=== PATIENT | female | born 1990 | race Caucasian/White ===

== ENCOUNTER 2023-11-23 15:16 | Observation (INO) | payer OTHER, MEDICAID, SELFPAY ==
[2023-11-23 15:19] VITALS: BP 124/90; PULSE 122; RESP 16; TEMP 35.6; O2SAT 100; BMI 27.8
[2023-11-23 15:21] VITALS: BP 124/90; PULSE 122; RESP 16; TEMP 35.6; O2SAT 100
--- NOTE | 2023-11-23 15:39 | EDS_ITS ---
HPI History of Present Illness Chief Complaint: Substance Abuse Informant: patient Onset/Context/Timing Onset: Today Timing: Continuous Worsened by: Nothing Relieved by: Nothing Associated Symptoms Associated Symptoms: Positive for tremor; Negative for vomiting*, diarrhea*, fever*, rash*, seizure, change in mental status, trauma, suicidal ideation or homicidal ideation Narrative Narrative: Patient presents requesting detox from heroin. Patient states she uses 2 to 3.5 g/day. Patient states she injects it. Patient states her last use was approximate 2 hours prior to arrival. Patient denies any prior detox. Patient admits to some tremors and palpitations. Patient denies any vomiting or diarrhea. Patient denies any fevers or chills. Patient denies any suicidal or homicidal ideations. [facility] Medical History (Updated 11/23/23 @ 18:[address] Jc Alba, DO) Former cigarette smoker Heavy alcohol use Heroin abuse HIV (human immunodeficiency virus infection) IV drug user Nicotine dependence due to vaping non-tobacco product Pelvic adhesive disease Home Medications bictegravir 50 mg-emtricitabine 200 mg-tenofovir alafenam 25 mg tablet (Bikta rvy) 1 tab PO DAILY 11/23/23 [History Last Taken Unknown] Allergy/AdvReac Type Severity Reaction Status Date / Time azithromycin Allergy Intermediate Rash Verified 11/23/23 15:19 [From Zithromax Z-Venancio] Family History (Updated 11/23/23 @ 17:[address] Mirlande Lynch MD) Mother Anxiety and depression Father Alcohol abuse Surgical History (Updated 11/23/23 @ 17:[address] Mirlande Lynch MD) H/O ovarian cystectomy H/O tubal ligation Hx of section Social History (Updated 11/23/23 @ 17:[address] Mirlande Lynch MD) household members: none and other details: Her mother w/ custody of her 2 children, 3rd/youngest was adopted at . Smoking Status: Current every day smoker tobacco type: cigarettes Electronic Cigarette Use: with nicotine how long ago did patient quit smoking: Former cigarette tobacco use, 1/2-1 ppd, transitioned to vap 3 yrs ago. alcohol intake: current alcohol intake frequency: a few times a week details: Reports drinking occasionally heavy on the F/S. substance use type: heroin and IV drugs ROS ROS ED Constitutional Constitutional ED: Reports chills and subjective; Denies fever(s) Eyes Eyes: Denies blurry vision or change in vision ENT ENT ED: Denies rhinorrhea or sore throat Cardiovascular Cardiovascular: Reports palpitations; Denies chest pain Respiratory/Chest Respiratory/Chest: Denies cough or dyspnea Gastrointestinal Gastrointestinal: Denies nausea or vomiting Genitourinary Genitourinary ED: Reports hematuria; Denies dysuria Musculoskeletal Musculoskeletal: Reports back pain and neck pain Integumentary Denies abscess or rash Neurologic Neurologic: Denies headache(s) or weakness Allergic/Immunologic Allergic/Immunologic ED: Denies mouth swelling or urticaria EXAM Physical Exam Const Vital Signs: 11/23/23 15:19 11/23/23 15:21 Temperature 96.0 F L 96.0 F L Temperature Source Temporal Temporal Pulse Rate 122 H 122 H Respiratory Rate 16 16 Blood Pressure 124/90 H 124/90 H Blood Pressure Mean 101 101 Pulse Ox 100 100 Oxygen Delivery Method Room Air Room Air Positive well nourished and well developed General Appearance ED: well developed and NAD HEENT Reports moist mucous membranes atraumatic Neck supple and no JVD Resp normal respiratory effort and clear to auscultation bilaterally Cardio regular rate and regular rhythm GI soft to palpation, non-tender and non-distended Neuro oriented x3, CN's II-XII intact bilaterally and no sensory deficits noted [place] Coma Scale: document GCS findings Spontaneous Obeys Commands Oriented 15 Sensorium / Orientation: alert Motor Exam: strength 5/5 throughout Psych mental status grossly normal MDM MDM MDM Narrative Medical decision making narrative: Medical screening labs will be obtained. CBC will be obtained to assess for leukocytosis and anemia. Comprehensive metabolic profile will be obtained to assess for hepatic function, renal function, and electrolyte abnormality. Serum hCG will be obtained to assess for . Serum alcohol level will be obtained to assess for alcohol intoxication. Urine drug screen will be obtained to assess for substance abuse. Lab Data Attestation: I reviewed the patient's lab results. Lab results narrative: CBC was reviewed and was within normal limits. Comprehensive metabolic profile was reviewed and was essentially within normal limits. Serum hCG was reviewed and was negative. Serum alcohol level was reviewed and was negative. Treatment and Re-Evaluation Narrative: Case was discussed with the hospitalist. She will admit the patient to her service. Patient understood and was agreeable with the plan. All questions were answered. Discharge Plan Triage Chief Complaint: Substance Abuse ED Provider: Jc Alba Dx/Rx/DC Orders Clinical Impression: Opiate withdrawal, HIV (human immunodeficiency virus infection) Primary Care Provider: Care Physician,No Primary Disposition Disposition: Acute Care Hospital [facility]
--- NOTE | 2023-11-23 16:33 | PCM.HP.STD ---
HPI - General General Date of Admission: 11/23/23 Date of Service: 11/23/23 Chief Complaint: Opiate detox request, Acute Opiate withdrawal. HPI Narrative The patient is a 33 y/o F w/ PMHx: HIV following with ID (should have annual visit this month), Former cigarette use->Vaping tobacco Heavy, Heavy Weekend Intermittent EtOH use, Pelvic adhesive disease, IVDA primarily with heroine using 3.5 gm daily who presents to the [facility] ED on 11/23/23 w/ noted acute opiate withdrawal onset starting on presentation following last dose 2-3 hours prior with mild cramping, generalized body aches, fatigue, restless leg. Patient interested in attaining clean status. She does report that she does not have custody of any of her children with the to Elder and her mother's custody and the youngest was adopted at . Patient does report most recent place of injection is into the left neck. Workup in the ED included T96, heart rate 122, BP 124/90, respiratory rate 16, 100% on room air, CBC with WBC 6.3, and 114, platelet 284 without marked shift, CMP with potassium 3.4, chloride 110, AST/LT 89/151, alk phos 158. [facility] Medical History (Updated 11/23/23 @ 17:[address] Mirlande Lynch MD) Former cigarette smoker Heavy alcohol use Heroin abuse HIV (human immunodeficiency virus infection) IV drug user Nicotine dependence due to vaping non-tobacco product Pelvic adhesive disease Home Medications bictegravir 50 mg-emtricitabine 200 mg-tenofovir alafenam 25 mg tablet (Biktarvy) 1 tab PO DAILY 11/23/23 [History Last Taken Unknown] Allergy/AdvReac Type Severity Reaction Status Date / Time azithromycin Allergy Intermediate Rash Verified 11/23/23 15:19 [From Zithromax Z-Venancio] Family History (Updated 11/23/23 @ 17:[address] Mirlande Lynch MD) Mother Anxiety and depression Father Alcohol abuse Surgical History (Updated 11/23/23 @ 17:[address] Mirlande Lynch MD) H/O ovarian cystectomy H/O tubal ligation Hx of section Social History (Updated 11/23/23 @ 17:[address] Mirlande Lynch MD) household members: none and other details: Her mother w/ custody of her 2 children, 3rd/youngest was adopted at . Smoking Status: Current every day smoker tobacco type: cigarettes Electronic Cigarette Use: with nicotine how long ago did patient quit smoking: Former cigarette tobacco use, 1/2-1 ppd, transitioned to vap 3 yrs ago. alcohol intake: current alcohol intake frequency: a few times a week details: Reports drinking occasionally heavy on the F/S. substance use type: heroin and IV drugs ROS ROS Narrative Admission Review of Systems: CONSTITUTIONAL: No weight loss, fever, chills, + weakness or fatigue. HEENT: Eyes: No visual loss, blurred vision, double vision or yellow sclerae. Ears, Nose, Throat: No hearing loss, sneezing, congestion, runny nose or sore throat. SKIN: No rash or itching, lesions, wounds except for + very staged track bay with most recent injection in the left neck with ecchymoses associated. CARDIOVASCULAR: + Sensation racing heart. No chest pain, chest pressure or chest discomfort, edema, orthopnea, syncopal events. RESPIRATORY: No shortness of breath, cough or sputum, wheezing, hemoptysis. GASTROINTESTINAL: + Mild anorexia, abdominal cramping. No nausea, vomiting, diarrhea, melena, BRBPR. GENITOURINARY: No dysuria, frequency, urgency or retention. NEUROLOGICAL: No headache, dizziness, syncope, paralysis, ataxia, numbness or tingling in the extremities, focal weakness, change in bowel or bladder control, seizure. MUSCULOSKELETAL: + muscle, back pain, joint pain or stiffness. HEMATOLOGIC: No anemia, bleeding or bruising. LYMPHATICS: No enlarged nodes. No history of splenectomy. PSYCHIATRIC: + Suspect potentially underlying anxiety/depression but patient denies. ENDOCRINOLOGIC: + Reports of sweating, cold or heat intolerance. No polyuria or polydipsia. ALLERGIES: No history of asthma, hives, eczema or rhinitis. Vital Signs Vital Signs Vital Signs: 11/23/23 15:19 11/23/23 15:21 Temperature 96.0 F L 96.0 F L Temperature Source Temporal Temporal Pulse Rate 122 H 122 H Respiratory Rate 16 16 Blood Pressure 124/90 H 124/90 H Blood Pressure Mean 101 101 Pulse Ox 100 100 Oxygen Delivery Method Room Air Room Air Weight Weight: 142 lb 10.225 oz Body Mass Index (BMI) 27.8 Physical Exam Narrative Physical Examination: General: Awake, alert, oriented x 3 and cooperative, seated upright in the ED bed, fatigued, yawning mildly restless. Skin: Normal color, normal turgor, no icterus, no cyanosis except for very staged track bay, most recent use area left neck with no fluctuant concerning regions with ecchymotic change HEENT: AT/NC, EOMI, PERRLA, dry MM, no carotid bruits or JVD noted, see skin. Lungs: Mildly diminished, greater bases, appropriate effort no rales, ronchi or wheezing. Heart: Tachycardic with regular rhythm; no gallop, rub audible. Abdomen: Soft, mild generalized discomfort but no rebound or guarding, no evidence of any distention, hyperactive BS, no appreciated HSM. Extremities: No cyanosis, clubbing, or edema. Neurological: Patient awake, alert, oriented as noted, cognitive function intact; pupils equally reactive to light and accommodation, cranial nerves grossly normal, moving all 4 extremities, no focal deficits, strength mildly to moderately globally Devi secondary to acute withdrawal. Psychiatric: Affect appears restless, fatigued, do suspect patient is mildly tearful with discussions regarding her children but denies any anxiety or depression. Results Lab / Micro Data 11/23/23 16:47 11/23/23 16:47 Assessment & Plan Assessment/Plan (1) Opiate withdrawal: PLAN: Plan The patient is a 33 y/o F w/ PMHx: HIV following with ID (should have annual visit this month), Former cigarette use->Vaping tobacco Heavy, Heavy Weekend Intermittent EtOH use, Pelvic adhesive disease, IVDA primarily with heroine using 3.5 gm daily who presents to the [facility] ED on 11/23/23 w/ noted acute opiate withdrawal. #1. Acute Opiate Withdrawal: Will admit to MS, routine labs including CBC, CMP, urine for drug screen obtained in the ED and pending upon evaluatioin, will initiate and continue on protocol with tapering course of Subutex, as needed tylenol, ibuprofen, bowel regimen, gabapentin, Bentyl, Vistaril, methocarbamol, clonidine, PRN nightly trazodone for insomnia, IV fluids, IV antiemetics. Once patient clinically improved and completion of taper nearing will plan consultation with case management for transition to next level of rehabilitation care. #2. Polysubstance Abuse, IVDA with HIV status: Discussed with patient and given ongoing IV drug abuse will obtain hepatitis panel as well as syphilis given elevated instances in the community. Will continue patient home HIV antiviral regimen strongly encourage continued routine follow-up with her infectious disease physician. #3. Heavier weekend alcohol use: Patient not the best historian regarding amount but from discussions do suspect possibly binge alcoholism, strongly encouraged given her propensity for abuse of substances complete sobriety. Supplementing potassium as noted, magnesium and phosphorus pending. To be cautious we will overlap with CIWA and maintain on multivitamin, thiamine and folic acid. #4. Transaminitis, unclear chronicity: Admission LFTs with AST/ALT 89/151, alk phos 158 without comparison, will obtain liver ultrasound be cautious as patient is high risk for lack of follow-up and repeat CMP in AM. Hepatitis panel as noted has been requested given ongoing IV drug abuse for concurrent coinfection. #5. Hypokalemia: Admission K+ 3.4, magnesium level requested, supplementation given, repeat level in AM. #6. Tobacco Abuse: Encouraged cessation, inpatient consultation per RT, NR if desired. #7. DVT prophylaxis: Low risk for type admission, encourage ambulation. Charges/Coding Visit Charges Inpatient E&M: 05923 Init Hosp L3
--- OUTSIDE RECORDS SUMMARY | 2023-11-23 16:44 | XMS RPT_ITS | CCD ---
Author Name Unknown Address [address] [place] [address] Organization [facility] Care Team Providers Care Customer Contact Specialist Name Role Phone Joanna Benitez Unavailable Unavailable Alvin Mckeon Unavailable Unavailable Alvin Mckeon Unavailable Unavailable TOWARD, SILVA E. Unavailable Unavailable TOWARD, SILVA E. Unavailable Unavailable BETTY ABAD Unavailable Unavailable TOWARD, SILVA E. Unavailable Unavailable RAINE العراقي Unavailable Unavailable TOWARD, SILVA E. Unavailable Unavailable SHAR KEENE Unavailable Unavailable RIVKA YUDYHELEN LARSON Primary Care Unavailable OMAR TINAJERO Admitting Unavailable OMAR TINAJERO Attending Unavailable Rivka Yudy Abbey Primary Care Provider [phone] No, Physician Primary Care Provider UnavailDr. Miguel Bailey II Attending Unav MARY Lomax Attending Unavailab le NO, PHYSICIAN Primary Care Unavailable Allergies Allergy Classification Reported Allergen(s) Allergy Type Date of Onset Reaction(s) Facility (3 sources) azithromycin; Translations: [azithromycin] Drug Allergy 4 AOF [facility] Repository (1 source) No Known Allergies; Translations: [No Known Allergies] Propensity to adverse reactions to drug (disorder) [facility] Repository (2 sources) ERYTHROMYCIN BASE; Translations: [Unknown] Propensity to adverse reactions to drug (disorder) 6 Rash [facility] Repository Medications Current Medications Medication Drug Class(es) Dates Sig (Normalized) Sig (Original) moxifloxacin 5 mg/ml ophthalmic solution (2 sources) Quinolone Antimicrobial Start: 02-11-2019 End: 02-18-2019 take 1 drop(s) into the eye(s) three times daily moxifloxacin (VIGAMOX) 0.5 % ophthalmic solution Administer 1 (one) drop to both eyes 3 (three) times a day HOME STACIE for 7 days . 5 mL 0 02/11/2019 02/18/2019 Active Completed/Discontinued Medications Medication Drug Class(es) Dates Sig (Normalized) Sig (Original) tetracaine hydrochloride 5 mg/ml ophthalmic solution (1 source) Natalie Local Anesthetic Start: 02-11-2019 End: 02-11-2019 tetracaine (ALTACAINE) 0.5 % ophthalmic drops 2 drop traZODone hydrochloride 50 mg oral tablet (1 source) Serotonin Reuptake Inhibitor Start: 03-22-2018 End: 02-10-2019 take 1 tablet by mouth once daily traZODone (DESYREL) 50 MG tablet Indications: Insomnia due to stress Take 1 (one) tablet (50 mg total) by mouth nightly. 30 tablet 3 03/22/2018 02/10/2019 Discontinued venlafaxine 75 mg oral tablet (1 source) Serotonin and Norepinephrine Reuptake Inhibitor Start: 03-22-2018 End: 02-10-2019 take 1 tablet by mouth twice daily venlafaxine (EFFEXOR) 75 MG tablet Indications: PTSD (Post-Traumatic Stress Disorder) Take 1 (one) tablet (75 mg total) by mouth 2 (two) times a day. 60 tablet 3 03/22/2018 02/10/2019 Discontinued Problems Active Problems Problem Classification Problem Date Documented Date Episodic/Chronic Anxiety disorders (1 source) Posttraumatic stress disorder; Translations: [PTSD (Post-Traumatic Stress Disorder)] Onset: 03-22-2018 03-22-2018 Chronic Inflammation; infection of eye (except that caused by tuberculosis or sexually transmitteddisease) (3 sources) Bacterial keratitis; Translations: [Unspecified conjunctivitis] Onset: 02-18-2023 Episodic Substance-related disorders (5 sources) Opioid dependence, uncomplicated; Translations: [Opioid dependence, uncomplicated] Onset: 05-21-2017 Chronic Past or Other Problems Problem Classification Problem Date Documented Date Episodic/Chronic Fracture of lower limb (1 source) Fracture of shaft of fibula; Translations: [Fracture of fibula, shaft] Onset: 12-27-2015 12-27-2015 Episodic Immunizations and screening for infectious disease (2 sources) Contact with and (suspected) exposure to infections with a predominantly sexual mode of transmission; Translations: [Contact with and (suspected) exposure to infections with a predominantly sexual mode of transmission] Onset: 07-20-2017 Episodic Other aftercare (2 sources) long-term (current) use of opiate analgesic; Translations: [long-term (current) use of opiate analgesic] Onset: 05-21-2017 Episodic Residual codes; unclassified (1 source) Insomnia; Translations: [Insomnia due to stress] Onset: 03-07-2018 03-07-2018 Episodic Results Test Name Value Interpretation Reference Range Facil ity Vital Signs Date Time Vital Sign Value Performing Clinician Faci lity 02-11-2019 00:01-0400 BMI (Body Mass Index) 27.04 kg/m2 [facility] 02-11-2019 00:01-0400 Body Temperature 97.7 [degF] [facility] 02-11-2019 00:01-0400 Body weight 61.24 kg [facility] 02-11-2019 00:01-0400 BP Diastolic 90 mm[Hg] [facility] 02-11-2019 00:01-0400 BP Systolic 123 mm[Hg] [facility] 02-11-2019 00:01-0400 Height 150.5 cm [facility] 02-11-2019 00:01-0400 Pulse (Heart Rate) 84 /min [facility] 02-11-2019 00:01-0400 Pulse Oximetry 97 % [facility] 02-11-2019 00:01-0400 Respiratory Rate 16 /min [facility] Encounters Encounter Date Encounter Type Care Provider Facility Start: 02-18-2023 End: 02-18-2023 Emergency department patient visit MARY MACHUCA CARO [facility] Start: 01-29-[address] Miguel Love II Facility:[id number] Start: 02-11-2019 End: 02-11-2019 Emergency department patient visit YUDY CORDOVA [facility] Start: 02-10-2019 End: 02-11-2019 Emergency department patient visit Omar Tinajero Work Phone: [facility] Emergency Department Plan of Treatment Date Care Activity Detail Author Start: 07-13-2018 Influenza vaccination given SE QUENTIAL INFLUENZA VACCINE (#1) [facility] Start: 1989 Screening for malign ant neoplasm of cervix PAP SMEAR [facility] Start: 1989 Tetanus vaccination TETANUS EVERY 10 YR [facility] Payers Date Payer Category Payer Self-pay 2017 Medicaid [id number] 2017 Medicaid [id number] 2013 Medicaid [id number] 1989 Unknown [id number] 1989 Unknown [id number] 1989 Unknown [id number] 1989 Unknown [id number] Medicaid Unknown [id number] Social History Date Type Detail Facility Start: 02-11-2019 Tobacco smoking status NHIS Current every day smoker [facility] Sex Assigned At Not on file [facility] Medical Equipment Procedure Code Equipment Code Equipment Origin al Text Equipment Identifier Dates fluorescein ophthalmic strip 1 strip [id number] Start: 02-11-2019 End: 02-11-2019 Summary Purpose Family History No Family History Records FoundNo Family History Records FoundNo Family History Records FoundNo Family History Records FoundNo Family History Records FoundNo Family History Records FoundNo Family History Records Found Advance Directives No Advanced Directives Records FoundNo Advanced Directives Records FoundNo Advanced Directives Records FoundNo Advanced Directives Records FoundNo Advanced Directives Records Found Patient has advance care planning documents on file. For more information, please contact: [address] [address] No Advanced Directives Records FoundNo Advanced Directives Records Found Discharge Instructions * Attachments The following attachments cannot be sent through Care Everywhere. * Blood Pressure: Elevated (German) in this encounter Assessments Diagnosis Bacterial keratitis- Primary Other forms of keratitis Additional Source Comments INFORMATION SOURCE (unrecogn ized section and content) DATE CREATED AUTHOR AUTHOR'S ORGANIZ ATION 05/08/2018 [facility] DATE CREATED AUTHOR AUTHOR'S ORGANIZ ATION 05/08/2018 [facility] DATE CREATED AUTHOR AUTHOR'S ORGANIZ ATION 10/21/2018 [facility] DATE CREATED AUTHOR AUTHOR'S ORGANIZ ATION 12/05/2020 [facility] DATE CREATED AUTHOR AUTHOR'S ORGANIZ ATION 02/04/2023 [facility] DATE CREATED AUTHOR AUTHOR'S ORGANIZ ATION 02/25/2023 [facility] Reason for Visit (unrecogniz ed section and content) Roxanne Fine RN - 02/11/2019 12:20 AM EDT ED Notes (unrecognized secti on and content) Physician at bedside. in this encounter FOR RECORDS PERTAINING TO PATIENTS WHO ARE OR HAVE BEEN ENROLLED IN A CHEMICAL DEPENDENCY/SUBSTANCEABUSE PROGRAM, SOME INFORMATION MAY BE OMITTED. This clinical summary was aggregated from multiple sources. Caution should be exercised in using it in the provision of clinical care. This summary normalizes information from multiple sources, and as a consequence, information in this document may materially change the coding, format and clinical context of patient data. In addition, data may be omitted in some cases. CLINICAL DECISIONS SHOULD BE BASED ON THE PRIMARY CLINICAL RECORDS. [employer] provides no warranty or guarantee of the accuracy or completeness of information in this document.
[2023-11-23 16:53] LABS: Absolute Lymphocyte Count 1.03 X10^3/uL (0.83-4.51); Absolute Neutrophil Count 4.7 X10^3/uL (2.0-7.7); Basophil# 0.03 X10^3/uL; Basophil% 0.5 % (0-1); Eosinophil# 0.01 X10^3/uL; Eosinophils% 0.2 % (0-5); Hematocrit 42.7 % (37-47); Lymphocyte # 1.03 X10^3/ul (0.83-4.51); Lymphocyte % 16.5 % (19-41); Mean Corp Hgb Conc 32.8 g/dL (32-36); Mean Corpuscular Hgb 26.7 pg (27.0-32.0); Mean Corpuscular Volume 81.3 fL (81-99); Mean Platelet Vol. 10.3 fl (6.2-12.0); Monocyte# 0.44 X10^3/uL; NRBC Flagged by Analyzer 0 % (0-5); Neutrophil # 4.72 X10^3/uL (2.7-7.7); Neutrophil % 75.5 % (47-70); Platelet Count 284 K/mm3 (150-450); RBC Distribution Width CV 12.4 % (11.6-14.6); RBC Distribution Width SD 36.2 fl (35.1-43.9); Red Blood Count 5.25 M/mm3 (4.2-5.4); White Blood Count 6.3 K/mm3 (4.4-11.0)
[2023-11-23 17:00] VITALS: BP 117/86; PULSE 85; RESP 16; O2SAT 99
[2023-11-23 17:11] LABS: ALB/GLOB Ratio 0.8 RATIO (0.9-2.4); AST(SGOT) 89 U/L (15-37); Alanine Aminotransfer ALT/SGPT 151 U/L (13-56); Albumin, Serum 3.7 g/dL (3.2-5.0); Alkaline Phosphatase 158 U/L (45-117); Anion Gap 9 (5-15); BUN 15 mg/dL (7-18); BUN/Creat Ratio 18.6 RATIO (10-20); Calcium,Total 9.5 mg/dL (8.5-10.1); Chloride 110 mmol/L (98-107); Creatinine, Serum 0.81 mg/dL (0.55-1.02); EST Glomerular Filtration Rate 86 mL/min (>60); Est Glom Filt Rate - Afr Amer 104 mL/min (>60); Estimated Creatinine Clearance 82.16 ml/min; Globulin 4.5 g/dL (2.2-4.2); Glucose 104 mg/dL (74-106); Potassium 3.4 mmol/L (3.5-5.1); Protein, Total 8.2 g/dL (6.4-8.2); Sodium Level 140 mmol/L (136-145)
--- NOTE | 2023-11-23 17:12 | CM.ED ---
Social Work SW called treatment navigator to notify them of new RAMP admission. No answer, left voicemail. Candelaria Mcwilliams PILLOWCASE FOLDER, ELECTRONICS WARFARE TECHNICIAN
[2023-11-23 18:03] LABS: Alcohol, Blood (Medical)-Serum < 3.0 mg/dL; Internal QC Validated? YES +Cl - CLEAR BKGD; Pregnancy, Serum, hCG Quali. NEGATIVE Negative
[2023-11-23 18:04] LABS: Magnesium 2.5 mg/dL (1.6-2.6); Phosphorus 3.6 mg/dL (2.5-4.9)
[2023-11-23 18:15] VITALS: BP 123/83; PULSE 77; RESP 14; O2SAT 99
[2023-11-23 18:24] LABS: Syphilis Antibodies Non-reactive
[2023-11-23 19:22] VITALS: BMI 27.8
[2023-11-23] MEDS: Potassium Chloride Oral Tablet 20 MEQ 40 MEQ PO (19:29)
[2023-11-23 19:32] VITALS: BP 130/76; PULSE 95; RESP 16; TEMP 36.8; O2SAT 98
[2023-11-23] MEDS: Acetaminophen 325 MG Tablet 650 MG PO (20:36)
[2023-11-23] MEDS: Ondansetron 8 MG Tablet PO (20:36)
[2023-11-23] MEDS: Dicyclomine 10 MG Capsule 20 MG PO (20:36)
[2023-11-23] MEDS: traZODone 100 MG Tablet PO (20:36)
[2023-11-23 20:49] LABS: Hepatitis B Surface Antibody Reactive; Hepatitis B Surface Antigen Non-Reactive (Nonreactive); Hepatitis C Antibody Preliminary Reactive (Nonreactive)
[2023-11-23] MEDS: Buprenorphine HCl 2 MG TAB.SUBL 4 MG SL (20:52)
[2023-11-23 22:45] VITALS: O2SAT 98
[2023-11-23] MEDS: Methocarbamol 750 MG Tablet PO (23:48)
[2023-11-23] MEDS: cloNIDine HCl 0.1 MG Tablet 0.100000000000000006 MG PO (23:48)
[2023-11-24 02:37] VITALS: BP 116/80; PULSE 92; RESP 16; TEMP 36.8; O2SAT 95
[2023-11-24] MEDS: Buprenorphine HCl 2 MG TAB.SUBL 4 MG SL (05:05)
--- NOTE | 2023-11-24 06:30 | US_ITS ---
STUDY: ABDOMINAL ULTRASOUND - RIGHT UPPER QUADRANT REASON FOR VISIT: Female, 33 years old Elevated LFTs TECHNIQUE: Ultrasound evaluation of the right upper quadrant was performed with real-time and static hernandez-scale imaging. TECHNICAL QUALITY: Adequate. COMPARISON: None. FINDINGS: Liver: The liver measures 15.6 cm. Increased echogenicity of the liver parenchyma due to fatty infiltration. The bile ducts are within normal limits. There is hepatic color flow. The direction of portal flow is hepatopetal. There is no demonstrated mass lesion. Gallbladder: Normal distended gallbladder. The gallbladder wall measures 2.7 mm. There is a negative sonographic Mercer''s sign. There is no pericholecystic fluid. There are no gallstones. Common Bile Duct (C.B.D.): The common bile duct measures 4.1 mm. Pancreas: Normal size of the visualized portions of pancreas. The pancreatic tail is obscured by overlying bowel gas. There is normal echogenicity of the visualized portions of the pancreas. No suspicious pancreatic mass or cyst in the visualized portions of the pancreas. Right Kidney: Normal size of the right kidney. The right kidney measures 9.6 x 5.3 x 5.4 cm. Normal renal cortex. The right cortex measures 2.1 cm. There is no demonstrated renal mass or cyst. There is no right hydronephrosis. US/Liver IMPRESSION: Diffuse hepatic steatosis otherwise negative right upper quadrant ultrasound. Electronically Signed: Marcellus Pool MD at 14:22 EST ,
[2023-11-24 07:55] VITALS: BP 114/80; PULSE 99; RESP 16; TEMP 36.8; O2SAT 96
[2023-11-24 07:56] VITALS: O2SAT 94
[2023-11-24] MEDS: Folic Acid 1 MG Tablet PO (08:46)
[2023-11-24] MEDS: Thiamine Hydrochloride 100 MG Tablet PO (08:46)
[2023-11-24] MEDS: Multivitamins,Ther W-Minerals Tablet 1 TABLET PO (08:46)
[2023-11-24 11:17] LABS: Amphetamine Urine VISTA POSITIVE (<1000 ng/mL); Barbiturate Urine VISTA NEGATIVE (< 200 ng/mL); Benzodiazepine Urine VISTA NEGATIVE (< 200 ng/mL); Cocaine Urine VISTA NEGATIVE (< 300 ng/mL); Ecstacy Urine VISTA POSITIVE (< 500 ng/mL); Methadone Urine VISTA NEGATIVE (< 300 ng/mL); PCP Urine VISTA NEGATIVE (< 25 ng/mL); THC Urine VISTA POSITIVE (< 50 ng/mL); Vista UDS pH Range 4
--- NOTE | 2023-11-24 11:54 | ADDICTION ---
This worker met with patient and completed assessments. Pt has requested to go home. She no longer wants to be in the [facility] program and plans to sign out AMA. SHe did not report any folow up plans and reports she is just not ready yet.
--- NOTE | 2023-11-24 12:02 | NURSING ---
pt left ama. signed papers
--- NOTE | 2023-11-24 16:58 | DS.PCM_ITS ---
Providers Date of Admission: 11/23/23 Date of Discharge: 11/24/23 Primary Care Physician: No Primary Care Phys Reason For Visit: OPIATE WITHDRAWAL Diagnosis Discharge Diagnosis (1) Opiate withdrawal: Status: Acute Code(s): F11.93 - Opioid use, unspecified with withdrawal Plan This is a 33-year-old female with history of chronic opioid use on IV fentanyl and heroin use admitted for acute opioid withdrawal syndrome. 1. Acute opioid withdrawal syndrome with history of chronic opioid use and dependence: The patient is started on buprenorphine along with other adjunctive medications as needed for medical stabilization as per order set of opioid withdrawal syndrome.Patient also on trazodone, hydroxyzine, gabapentin as needed ordered. Advised quitting opioid use. industrial engineering manager consult. Patient uses IV on left external jugular vein. 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 Advised to quit it. After I saw the patient she signed AMA and left the hospital. Risk for signing AMA was explained to the patient. 2. Polysubstance use with IVDA and chronic HIV infection 3. Heavy use of alcohol during weekend, chronic alcohol use disorder 4. Chronic alcoholic/substance use hepatitis: AST and ALT are elevated 89 and 151. Alkaline phos 158. 5. Hypokalemia: Potassium was replaced. Serum magnesium normal. Serum phosphorus normal. Chronic cigarette user. Patient signed AMA. Medications at Discharge Home Medications bictegravir 50 mg-emtricitabine 200 mg-tenofovir alafenam 25 mg tablet (Bikt arvy) 1 tab PO DAILY 11/23/23 Physical Exam Narrative Seen and examined. Patient feels anxious. Awake and oriented x 3. Feels restless but denies hallucination. Mild diarrhea. Could not sleep last night. Physical exam General: Awake, looks lethargic. Oriented x3, Cooperative HEENT: Atraumatic, PERRLA, EOMI, Normocephalic Oral: No Gingival or Mucosal Lesions/ Ulcerations Neck: Supple, No JVD, Negative Carotid Bruits Lungs: Air entry diminished in bilateral lung bases. No crepitation/rhonchi Cardiovascular: Regular rate, Regular Rhythm, Normal S1, Normal S2, No murmurs Abdomen: Bowel Sounds Present, Soft, Non Tender, Non-Distended : No renal angle tenderness. No suprapubic tenderness. Extremities: No edema, Capillary Refill Less than 3 Seconds Skin: Chronic thickening of external jugular vein, left side, left chronic thrombophlebitis Musculoskeletal: No Tenderness to Palpation of Joints or Extremities Neurological: Cranial nerves II-XII grossly intact, DTR 2+/4. No acute focal neurological deficit. Psych/Mental Status: Flat affect. Weight / BMI Weight Weight: 142 lb 10.225 oz Body Mass Index (BMI) 27.8 ABG / Lab / Microbiology Data 11/23/23 16:47 11/23/23 16:47 Laboratory: Laboratory Results - last 24 hr 11/23/23 10:40: Urine Opiates Screen POSITIVE H, Urine Methadone Screen NEGATIVE, Ur Barbiturates Screen NEGATIVE, Ur Phencyclidine Scrn NEGATIVE, Ur Amphetamines Screen POSITIVE H, MDMA (Ecstasy) Screen POSITIVE H, U Benzodiazepines Scrn NEGATIVE, Urine Cocaine Screen NEGATIVE, U Cannabinoids Screen POSITIVE H, Ur Drug Screen Comment 11/23/23 16:47: Sodium 140, Potassium 3.4 L, Chloride 110 H, Carbon Dioxide 21.0, Anion Gap 9, BUN 15, Creatinine 0.81, Estim Creat Clear Calc 82.16, Est GFR (MDRD) Af Amer 104, Est GFR (MDRD) Non-Af 86, BUN/Creatinine Ratio 18.6, Glucose 104, Calcium 9.5, Phosphorus 3.6, Magnesium 2.5, Total Bilirubin 0.60, AST 89 H, ALT 151 H, Alkaline Phosphatase 158 H, Total Protein 8.2, Albumin 3.7, Globulin 4.5 H, Albumin/Globulin Ratio 0.8 L 11/23/23 17:30: Serum , Qual NEGATIVE, Ethyl Alcohol < 3.0, Syphilis Total Ab Non-reactive, Hep Bs Antigen Non-Reactive, Hep Bs Antibody Reactive, H epatitis C Antibody Preliminary Reactive Radiography Diagnostic Testing: Radiology Impression Liver Ultrasound 11/24/23 06:30 IMPRESSION: Diffuse hepatic steatosis otherwise negative right upper quadrant ultrasound. Electronically Signed: Marcellus Pool MD at 14:22 EST , Meaningful Use Info Meaningful Use Diagnoses (Choose all that apply): None applicable Discharge Plan Admission Admit Date/Time: 11/23/23 16:31 Attending Provider: Sal Gregorio Primary Care Provider: Care Physician,No Primary Consulting Providers: Mirlande Lynch Discharge Orders/Prescriptions Prescriptions: No Action Biktarvy 50-200-25 mg tablet 1 tab PO DAILY Patient Comments: TAKE 1 TABLET BY MOUTH EVERY DAY Referrals / Follow Up: Care Physician,No Primary [Primary Care Provider] - Disposition Disposition (needs filled in before D/C Order can be placed): Against Medical Advice Charges/Coding Visit Charges Inpatient E&M: 45335 Disch Hosp >30min
--- OUTSIDE RECORDS SUMMARY | 2023-11-26 10:12 | XMS RPT_ITS | CCD ---
Author Name Unknown Address [address] [place] [address] Organization [facility] Care Team Providers Care Business Improvement Manager Name Role Phone Joanna Benitez Unavailable Unavailable [...] Unavailable Rivka Yudy Abbey Primary Care Provider [phone] No, Physician Primary Care Provider UnavailDr. Miguel Bailey II Attending Unav MARY Lomax Attending Unavailab le NO, PHYSICIAN Primary Care Unavailable Allergies Allergy Classification Reported Allergen(s) Allergy Type Date of Onset Reaction(s) Facility (3 sources) azithromycin; Translations: [azithromycin] Drug Allergy 4 [facility] Repository (1 source) No Known Allergies; Translations: [No Known Allergies] Propensity to adverse reactions to drug (disorder) [facility] Repository (2 sources) ERYTHROMYCIN BASE; Translations: [Unknown] Propensity to adverse reactions to drug (disorder) 6 [facility] Repository Medications Current Medications Medication Drug [...] Onset: 07-20-2017 Episodic Other aftercare (2 sources) [facility] (current) use of opiate analgesic; Translations: [[facility] (current) use of opiate analgesic] Onset: 05-21-2017 Episodic Residual codes; unclassified (1 source) Insomnia; Translations: [Insomnia due to stress] Onset: 03-07-2018 03-07-2018 Episodic Results Test Name Value Interpretation Reference Range Facil ity Vital Signs Date Time Vital Sign Value Performing Clinician Faci lity 02-11-2019 00:01-0400 BMI (Body Mass Index) 27.04 kg/m2 [facility] 02-11-2019 00:01-0400 Body Temperature 97.7 [degF] [facility] 02-11-2019 00:01-0400 Body weight 61.24 kg [facility] 02-11-2019 00:01-0400 BP Diastolic 90 mm[Hg] [facility] 02-11-2019 00:01-0400 BP Systolic 123 mm[Hg] [facility] 02-11-2019 00:01-0400 Height 150.5 cm [facility] 02-11-2019 00:01-0400 Pulse (Heart Rate) 84 /min [facility] 02-11-2019 00:01-0400 Pulse Oximetry 97 % [facility] 02-11-2019 00:01-0400 Respiratory Rate 16 /min [facility] Encounters Encounter Date Encounter Type Care Provider Facility Start: 02-18-2023 End: 02-18-2023 Emergency department patient visit MARY MACHUCA CARO [facility] Start: 01-29-[address] Miguel Love II Facility:[id number] Start: 02-11-2019 End: 02-11-2019 Emergency department patient visit YUDY CORDOVA [facility] Start: 02-10-2019 End: 02-11-2019 Emergency department patient visit Omar Tinajero Work Phone: [facility] Emergency Department Plan of Treatment Date Care Activity Detail Author Start: 07-13-2018 Influenza vaccination given SE QUENTIAL INFLUENZA VACCINE (#1) [facility] Start: 1989 Screening for malign ant neoplasm of cervix PAP SMEAR [facility] Start: 1989 Tetanus vaccination TETANUS EVERY 10 YR [facility] Payers Date Payer Category Payer Self-pay 2017 Medicaid [id number] 2017 Medicaid [id number] 2013 Medicaid [id number] 1989 Unknown [id number] 1989 Unknown [id number] 1989 Unknown [id number] 1989 Unknown [id number] Medicaid Unknown [id number] Social History Date Type Detail Facility Start: 02-11-2019 Tobacco smoking status NHIS Current every day smoker [facility] Sex Assigned At Not on file [facility] Procedure Code Equipment Code Equipment Origin al Text Equipment Identifier Dates fluorescein ophthalmic strip 1 strip [id number] Start: 02-11-2019 End: 02-11-2019 Summary Purpose Family [...] on file. For more information, please contact: [address] [address] No Advanced Directives Records FoundNo Advanced Directives Records Found Discharge Instructions * Attachments The following attachments cannot be sent through Care Everywhere. * Blood Pressure: Elevated (Kinyarwanda) in this encounter Assessments Diagnosis Bacterial keratitis- Primary Other forms of keratitis Additional Source Comments INFORMATION SOURCE (unrecogn ized section and content) DATE CREATED AUTHOR AUTHOR'S ORGANIZ ATION 05/08/2018 [facility] DATE CREATED AUTHOR AUTHOR'S ORGANIZ ATION 05/08/2018 [facility] DATE CREATED AUTHOR AUTHOR'S ORGANIZ ATION 10/21/2018 [facility] DATE CREATED AUTHOR AUTHOR'S ORGANIZ ATION 12/05/2020 [facility] DATE CREATED AUTHOR AUTHOR'S ORGANIZ ATION 02/04/2023 [facility] DATE CREATED AUTHOR AUTHOR'S ORGANIZ ATION 02/25/2023 [...] BE BASED ON THE PRIMARY CLINICAL RECORDS. [employer] provides no warranty or guarantee of the accuracy or completeness of information in this document.
== END 2023-11-24 12:06 | disposition left against medical advice (07) ==
LOC: ED 15:40 → MS3 18:30
PROVIDERS: Admitting Provider Family Medicine; Emergency Provider Emergency Medicine; Visit Provider Internal Medicine
DX: F11.23 Opioid dependence with withdrawal (principal); Z21 Asymptomatic human immunodeficiency virus [HIV] infection status; F10.20 Alcohol dependence, uncomplicated; F19.19 Other psychoactive substance abuse with unspecified psychoactive substance-induced disorder; Z87.891 Personal history of nicotine dependence; E87.6 Hypokalemia; K70.10 Alcoholic hepatitis without ascites; F17.290 Nicotine dependence, other tobacco product, uncomplicated
CPT/HCPCS: 76705; 80053; 80307; 80320; 83735; 84100; 84703; 85025; 86706; 86780; 86803; 87340; 99221; 99283; G0378; G0480